=== PATIENT | female | born 1995 | race Two or more races ===

== ENCOUNTER 2021-05-18 20:47 | Emergency (ER) | payer MEDICAID ==
[~2021-05-18] VITALS: Ht 152.4 cm; Wt 65.8 kg
[2021-05-18 21:34] VITALS: BP 125/80
== END 2021-05-18 21:33 | disposition left against medical advice (07) ==
LOC: ER 20:49
DX: M25.511 Pain in right shoulder (principal); M54.59 Other low back pain; Z53.21 Procedure and treatment not carried out due to patient leaving prior to being seen by health care provider